=== PATIENT | female | born 1965 | race Two or more races ===

== ENCOUNTER 2019-10-30 07:43 | Emergency (ER) | payer MEDICAID, OTHER ==
[~2019-10-30] VITALS: Ht 162.6 cm; Wt 65.0 kg
[2019-10-30] MEDS ORDERED: MORPHINE SULFATE 10 MG/ML CPJ IM ONE (08:00)
[2019-10-30 08:32] LABS: BASOPHILS % 0.4 % (0.0-2.0); EOSINOPHILS % 4.3 % (0.0-5.0); HEMATOCRIT. 32.8 % (36.0-48.0); LYMPHOCYTES % 10.6 % (20.0-50.0); MEAN CORPUSCULAR HEMOGLOBIN 30.4 pg (28.0-32.0); MEAN CORPUSCULAR VOLUME 90.8 fL (81.0-99.0); MONOCYTES % 9.7 % (2.0-8.0); PLATELET 174 x1000/uL (130-400); RED BLOOD CELL COUNT 3.61 mill/uL (4.2-5.4); RED CELL DISTRIBUTION WIDTH 15.1 % (11.6-14.6)
[2019-10-30 08:33] LABS: CHLORIDE 101 mEq/L (98-107)
[2019-10-30 08:37] LABS: ETHANOL BLOOD < 10 mg/dL
[2019-10-30 13:18] VITALS: BP 128/76
== END 2019-10-30 13:20 | disposition home or self-care (01) ==
LOC: EDBD 07:59 → ER 07:59
DX: R51 Headache (principal); I13.2 Hypertensive heart and chronic kidney disease with heart failure and with stage 5 chronic kidney disease, or end stage renal disease; E11.22 Type 2 diabetes mellitus with diabetic chronic kidney disease; N18.6 End stage renal disease; I50.9 Heart failure, unspecified; Z99.2 Dependence on renal dialysis
CPT/HCPCS: 36415; 70450; 71045; 80053; 80320; 82962; 85025; 96372; 99285; J2270; G0480